=== PATIENT | female | born 1965 | race African-American/Black ===

== ENCOUNTER → 2024-09-05 | Outpatient (CLI) | payer BC ==
[~2024-09-05] MED LIST: BARIUM SULFATE 176 GM SUSP.RECON ONE; EZ-HD SUSPENSION(BARIUM SULFATE 340GM) PO ONE; SIMETHICONE/SOD BICARB/CIT AC 1 EACH GRAN.EF.PK ONE
== END | disposition home or self-care (01) ==
LOC: RAD 09:26
PROVIDERS: ATTEND Internal Medicine Gastroenterology
DX: K20.90 Esophagitis, unspecified without bleeding (principal)
CPT/HCPCS: 74220; Z7610; J7517

== ENCOUNTER → 2025-04-27 | Outpatient (CLI) | payer BC | END | disposition home or self-care (01) | LOC: CARD 08:50 | DX: I35.1 Nonrheumatic aortic (valve) insufficiency (principal); M60.9 Myositis, unspecified; E66.9 Obesity, unspecified | CPT/HCPCS: 93306 ==

== ENCOUNTER → 2025-06-26 | Outpatient (CLI) | payer BC | END | disposition home or self-care (01) | LOC: MRI 08:54 | DX: M47.812 Spondylosis without myelopathy or radiculopathy, cervical region (principal); M25.78 Osteophyte, vertebrae; M48.03 Spinal stenosis, cervicothoracic region; M79.2 Neuralgia and neuritis, unspecified | CPT/HCPCS: 72141 ==

== ENCOUNTER → 2025-06-26 | Outpatient (CLI) | payer BC | END | disposition home or self-care (01) | LOC: MRI 09:01 | DX: M75.111 Incomplete rotator cuff tear or rupture of right shoulder, not specified as traumatic (principal); M75.31 Calcific tendinitis of right shoulder; E66.9 Obesity, unspecified; M25.511 Pain in right shoulder | CPT/HCPCS: 73221 ==

== ENCOUNTER → 2025-08-07 | Outpatient (CLI) | payer BC | END | disposition home or self-care (01) | LOC: CT 08:13 | DX: J47.9 Bronchiectasis, uncomplicated (principal); J98.4 Other disorders of lung; K22.89 Other specified disease of esophagus; M32.9 Systemic lupus erythematosus, unspecified | CPT/HCPCS: 71250 ==